=== PATIENT | female | born 1940 | race Native Hawaiian/Other Pacific Islander ===

== ENCOUNTER 2017-05-17 10:34 | Emergency (ER) | payer MEDICARE, OTHER ==
[2017-05-17 11:02] VITALS: TEMP 97.4
--- NOTE | 2017-05-17 11:28 | ED PDOC ---
Arrival/HPI - General Chief Complaint: Flu-like Symptoms Time Seen by Provider: 05/17/17 10:58 Historian: Patient - History of Present Illness Narrative History of Present Illness (Text): 05/17/17 10:57 A 76 year old female, whose past medical history includes hypertension and hyperlipidemia, presents to the emergency department complaining of queasiness for 2 days. Patient reports she had a cataract surgery last month and was feeling normal. After the surgery she began feeling discomfort in her right eye , she took eye drops but this relieved her symptoms only a little. Patient began feel queasy in her head and body. Patient is scheduled to see her PMD next week. Patient states she coughed once in the ED only because she had dry mouth and needed water. She denies of any fever, chills, nausea, vomiting, diarrhea, abdominal pain, chest pain, shortness of breath, dizziness, syncope, rhinorrhea, or any other complaints. PMD: Dr. Mckee Time/Duration: < week (2 days ago) Symptom Onset: Sudden Symptom Course: Unchanged Activities at Onset: Rest, Light Context: Home Past Medical History - Provider Review Nursing Documentation Reviewed: Yes - Cardiac Hx Hypertension: Yes - Neurological Hx Neurological Disorder: No - HEENT Hx Cataracts: Yes (surgery april) - Renal Hx Renal Disorder: No - Endocrine/Metabolic Hx Hypothyroidism: Yes - Hematological/Oncological Hx Blood Disorders: No - Integumentary Hx Dermatological Disorder: No - Musculoskeletal/Rheumatological Hx Musculoskeletal Disorders: No - Gastrointestinal Hx Gastrointestinal Disorders: No - Genitourinary/Gynecological Hx Genitourinary Disorders: No - Psychiatric Hx Psychophysiologic Disorder: No Hx Substance Use: No - Surgical History Hx Cataract Extraction: Yes Family/Social History - Physician Review Nursing Documentation Reviewed: Yes Family/Social History: No Known Family HX Smoking Status: Never Smoked Hx Alcohol Use: No Hx Substance Use: No Allergies/Home Meds Allergies/Adverse Reactions: Allergies aspirin Allergy (Verified 05/17/17 10:53) RASH Penicillins Allergy (Verified 05/17/17 10:53) RASH Home Medications: Home Meds Medication Instructions Recorded Confirmed Levothyroxine [Synthroid] 50 05/17/17 Simvastatin [Zocor] 20 mg 05/17/17 amLODIPine [Norvasc] 2.5 mg 05/17/17 Review of Systems - Physician Review All systems were reviewed & negative as marked: Yes - Review of Systems Constitutional: Other (queasiness). absent: Fevers, Night Sweats Eyes: absent: Vision Changes ENT: absent: Rhinorrhea Respiratory: Cough. absent: SOB Cardiovascular: absent: Chest Pain, Palpitations, Syncope Gastrointestinal: absent: Abdominal Pain, Diarrhea, Nausea, Vomiting Neurological: absent: Dizziness Physical Exam Vital Signs Reviewed: Yes Vital Signs Temp Pulse Resp BP Pulse Ox 05/17/17 12:23 61 18 141/71 100 05/17/17 11:01 97.4 F L 67 19 155/79 H 99 05/17/17 10:34 97.9 F 74 18 147/81 98 Temperature: Afebrile Blood Pressure: Normal Pulse: Regular Respiratory Rate: Normal Appearance: Positive for: Well-Appearing Pain Distress: None Mental Status: Positive for: Alert and Oriented X 3 - Systems Exam Head: Present: Atraumatic, Normocephalic Pupils: Present: PERRL Extroacular Muscles: Present: EOMI Conjunctiva: Present: Normal Mouth: Present: Moist Mucous Membranes Pharnyx: Present: Normal Neck: Present: Normal Range of Motion Respiratory/Chest: Present: Clear to Auscultation, Good Air Exchange. No: Respiratory Distress, Accessory Muscle Use Cardiovascular: Present: Regular Rate and Rhythm, Normal S1, S2. No: Murmurs Abdomen: Present: Normal Bowel Sounds. No: Tenderness, Distention, Peritoneal Signs Back: Present: Normal Inspection Upper Extremity: Present: Normal Inspection. No: Cyanosis, Edema Lower Extremity: Present: Normal Inspection. No: Edema Neurological: Present: GCS=15, CN II-XII Intact, Speech Normal, Motor Func Grossly Intact, Normal Sensory Function, Normal Cerebellar Funct, Norm Deep Tendon Reflexes, Gait Normal, Memory Normal, Normal 2Pt Descrimination Skin: Present: Warm, Dry, Normal Color. No: Rashes Psychiatric: Present: Alert, Oriented x 3, Normal Insight, Normal Concentration Medical Decision Making ED Course and Treatment: 05/17/17 11:05 Impression: 76 year old female with queasiness. Normal physical exam; normal neuro exam Differential Diagnosis included but are not limited to: Electrolyte abnormalities vs UTI Plan: -- Chest X-Ray -- Labs -- Urinalysis -- Reassess and disposition Progress Notes: 05/17/17 12:42 Patient labs reviewed with patient. She will f/u with her PMD in 1-2 days and was advised to return tot he ED if symptoms worsen or any other concern. - Lab Interpretations Lab Results: 05/17/17 12:00 05/17/17 12:00 Lab Results 05/17/17 12:00: Sodium 141, Potassium 4.0, Chloride 100, Carbon Dioxide 29, Anion Gap 16, BUN 13, Creatinine 0.8, Est GFR ( Amer) > 60, Est GFR (Non- Af Amer) > 60, Random Glucose 107, Calcium 10.0, Magnesium 2.3 H 05/17/17 12:00: Urine Color Straw, Urine Appearance Clear, Urine pH 7.0, Ur Specific Plato 1.010, Urine Protein Negative, Urine Glucose (UA) Negative, Urine Ketones Negative, Urine Blood Moderate H, Urine Nitrate Negative, Urine Bilirubin Negative, Urine Urobilinogen 0.2, Ur Leukocyte Esterase Small H, Urine RBC 1 - 3, Urine WBC 0 - 2, Ur Epithelial Cells 0 - 2, Urine Bacteria Neg 05/17/17 12:00: WBC 6.7 D, RBC 4.70, Hgb 14.2, Hct 41.7, MCV 88.7, MCH 30.2, MCHC 34.1, RDW 13.3, Plt Count 227, MPV 9.4, Gran % 73.8 H, Lymph % (Auto) 18.8 L, [place] % (Auto) 6.6 H, Eos % (Auto) 0.6 L, Baso % (Auto) 0.2, Gran # 4.92, Lymph # 1.3, [place] # 0.4, Eos # 0.0, Baso # 0.01 I have reviewed the lab results: Yes - RAD Interpretation Radiology Orders: 05/17/17 12:24 CXR [CHEST PORTABLE] [RAD] Stat - Scribe Statement The provider has reviewed the documentation as recorded by the Ashtyn Prather Provider Scribe Attestation: All medical record entries made by the Scribe were at my direction and personally dictated by me. I have reviewed the chart and agree that the record accurately reflects my personal performance of the history, physical exam, medical decision making, and the department course for this patient. I have also personally directed, reviewed, and agree with the discharge instructions and disposition. Disposition/Present on Arrival - Present on Arrival Any Indicators Present on Arrival: No History of DVT/PE: No History of Uncontrolled Diabetes: No Urinary Catheter: No History of Decub. Ulcer: No History Surgical Site Infection Following: None - Disposition Have Diagnosis and Disposition been Completed?: Yes Diagnosis: Weakness Disposition: HOME/ ROUTINE Disposition Time: 12:44 Patient Plan: Discharge Patient Problems: Current Active Problems Problem Status Onset Weakness Acute Condition: IMPROVED Discharge Instructions (ExitCare): Weakness (ED) Additional Instructions: Ms Tai, thank you for letting us take care of you today. Your provider was Dr. Bates. You were treated for Weakness. The emergency medical care you received today was directed at your acute symptoms. If you were prescribed any medication , please fill it and take as directed. It may take several days for your symptoms to resolve. Return to the Emergency Department if your symptoms worsen , do not improve, or if you have any other problems. Please contact your doctor or call one of the physicians/clinics you have been referred to that are listed on the Patient Visit Information form that is included in your discharge packet. Bring any paperwork you were given at discharge with you along with any medications you are taking to your follow up visit. Our treatment cannot replace ongoing medical care by a primary care provider (PCP) outside of the emergency department. Thank you for allowing the [facility] team to be part of your care today. If you had an X-Ray or CT scan: A Radiologist will review the ED reading if any change in treatment is needed we will contact you. If you had a blood, urine, or wound culture: It will take several days for the results, if any change in treatment is needed we will contact you. If you had an STI test: It will take 48 hours for the results. Please call after 1 week if you have not heard back. Referrals: Sarah Barrientos MD [Primary Care Provider] - Follow up with primary Forms: [facility] ([place])
[2017-05-17 12:10] LABS: URINE APPEARANCE CLEAR (CLEAR); URINE BILIRUBIN NEGATIVE (NEGATIVE); URINE BLOOD MODERATE (NEGATIVE); URINE COLOR STRAW (YELLOW); URINE GLUCOSE (UA) NEGATIVE (NEGATIVE); URINE LEUKOCYTE ESTERASE SMALL Leu/uL (NEGATIVE); URINE NITRATE NEGATIVE (NEGATIVE); URINE PROTEIN NEGATIVE mg/dL (<30 mg/dL); URINE UROBILINOGEN 0.2 E.U./dL (<1 E.U./dL)
[2017-05-17 12:11] LABS: BASO # 0.01 K/mm3 (0.0-2.0); BASO % 0.2 % (0.0-3.0); EOS % 0.6 % (1.5-5.0); GRAN # 4.92 (1.4-6.5); GRAN % 73.8 % (50.0-68.0); HEMOGLOBIN 14.2 g/dL (12.0-16.0); LYMPH # 1.3 (1.2-3.4); LYMPH % 18.8 % (22.0-35.0); MEAN CELL VOLUME 88.7 fl (80.0-105.0); MEAN CORPUSCULAR HEMOGLOBIN 30.2 pg (25.0-35.0); MEAN CORPUSCULAR HGB CONC 34.1 g/dl (31.0-37.0); MEAN PLATELET VOLUME 9.4 fl (7.0-11.0); MONO # 0.4 (0.1-0.6); MONO % 6.6 % (1.0-6.0); PLATELET COUNT 227 10^3/uL (120.0-450.0); RED CELL DISTRIBUTION WIDTH 13.3 % (11.5-14.5); WHITE BLOOD COUNT 6.7 10^3/ul (4.5-11.0)
[2017-05-17 12:17] LABS: URINE BACTERIA NEG (NEG); URINE EPITHELIAL CELLS 0 - 2 /hpf (0-5); URINE WBC 0 - 2 /hpf (0-6)
[2017-05-17 12:18] LABS: BLOOD UREA NITROGEN 13 mg/dL (7-21); GFR AFRICAN-AMERICAN > 60; GFR NON-AFRICAN AMERICAN > 60; MAGNESIUM 2.3 mg/dL (1.7-2.2)
[2017-05-17 12:24] VITALS: BP 141/71; PULSE 61; RESP 18; O2SAT 100
== END 2017-05-17 13:28 | disposition home or self-care (01) ==
LOC: ED 10:34
DX: R53.1 Weakness (principal); I10 Essential (primary) hypertension

== ENCOUNTER 2017-07-13 11:05 | Day surgery (SDC) | payer MEDICARE, OTHER ==
[2017-07-04 11:37] VITALS: BMI 17.9
[2017-07-13] MEDS ORDERED: Sodium Chloride 0.9% 1,000 ML IV SCH (12:45)
[2017-07-13] MEDS ORDERED: Midazolam 2 MG/2 ML VIAL ONE (13:18)
[2017-07-13] MEDS ORDERED: Propofol 10 mg/ml Inj (20 ML) ONE (13:18)
[2017-07-13 13:29] VITALS: O2SAT 100
[2017-07-13 14:43] VITALS: BP 130/65; PULSE 62; RESP 19; TEMP 97.4
== END 2017-07-13 15:14 | disposition home or self-care (01) ==
LOC: ENDO 11:05
PROVIDERS: ATTEND Internal Medicine Gastroenterology
DX: Z12.11 Encounter for screening for malignant neoplasm of colon (principal); K57.30 Diverticulosis of large intestine without perforation or abscess without bleeding; K64.0 First degree hemorrhoids; I10 Essential (primary) hypertension; E78.5 Hyperlipidemia, unspecified
CPT/HCPCS: 45378; J2250; J2704; J7040 ×2